=== PATIENT | male | born 1990 | race Caucasian/White ===

== ENCOUNTER 2017-02-17 18:38 | Emergency (ER) | payer OTHER ==
[2017-02-17 18:52] VITALS: O2SAT 95
[2017-02-17] MEDS ORDERED: ASPIRIN 81 MG CHEWABLE TAB PO ONE (19:20)
[2017-02-17 19:44] LABS: % IMMATURE GRANULYOCYTES 0.3 % (0.0-1.1); ABSOLUTE IMMATURE GRANULOCYTES 0.03 10^3/uL (0.00-0.10); ADD DIFF? NO; ADD MORPH? NO; ADD SCAN? NO; ATYPICAL LYMPHOCYTE FLAG 10 (0-99); FRAGMENT RBC FLAG 0 (0-99); HEMATOCRIT 44.1 % (40.0-51.0); HEMOGLOBIN 15.6 g/dL (13.7-17.5); LEFT SHIFT FLG 0 (0-99); LIPEMIA HEMOLYSIS FLAG 90 (0-99); MEAN CELL HEMOGLOBIN 32.9 pg (27.9-34.1); MEAN CELL HEMOGLOBIN CONCENTR. 35.4 g/dL (32.4-36.7); MEAN PLATELET VOLUME 9.7 fL (8.7-11.7); PLATELET CLUMPS FLAG 0 (0-99); PLATELET COUNT 291 10^3/uL (150-400); RED BLOOD CELL COUNT 4.74 10^6/uL (4.40-6.38); RED CELL DISTRIBUTION WIDTH 12.8 % (11.5-15.2)
[2017-02-17 19:57] LABS: ANION GAP 16 mEq/L (8-16); CALCIUM 9.1 mg/dL (8.5-10.4); CARBON DIOXIDE 22 mEq/l (22-31); CHLORIDE 103 mEq/L (97-110); CREATININE 0.7 mg/dL (0.7-1.3); GLOMERULAR FILTRATION RATE > 60; GLUCOSE 118 mg/dL (70-100); POTASSIUM 3.6 mEq/L (3.5-5.2); SODIUM 141 mEq/L (134-144)
[2017-02-17] MEDS ORDERED: IBUPROFEN 600 MG TAB PO ONE (20:06)
[2017-02-17 20:28] LABS: HEMATOCRIT 44.1 % (40.0-51.0)
--- NOTE | 2017-02-17 21:13 | EDPHY ---
H & P Time Seen by Provider: 02/17/17 19:11 HPI/ROS: This patient has right ankle pain for 2 days. He describes this is achy in nature gradually increasing peak intensity 10 now 01/06. He reports associated leg swelling right-sided more than left also for 2 days duration. The patient denies any acute injury. 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 He also has social history notable for significant daily protein intake and alcohol consumption. He wonders if he might have gout. ROS: No fevers or chills. No other constitutional symptoms HEENT: No URI symptoms Pulmonary: No shortness of breath or chest pain. No pleuritic pain. Cardiovascular: No lightheadedness. No chest pain. GI: No complaints Integumentary: No skin rash Musculoskeletal: Again no acute trauma. No other joint pain or swelling. 10 point ROS is otherwise negative. Past Medical/Surgical History: family history is notable for a father with history of gout No family history of DVT or PE No family history of rheumatoid arthritis Social History: Patient admits to drinking 10 shots a night on average and admits to regular alcohol use / abuse since his 1st 7 years ago. Prior to that he only drank socially. He also he uses marijuana on occasion but not daily. Denies any other drug use including no cocaine or IV drug use. His work entails sitting in heavy machinery for 10 hours a day. He is and has a 3 in 5-year-old child Smoking Status: Heavy smoker (he smokes a pack-a-day) Physical Exam: Vital signs are normal with exception of mild hypertension 140/89 General Appearance: Alert, no distress. Eyes: Pupils equal and round no pallor or injection. ENT, Mouth: Mucous membranes moist. no alcohol halitosis is appreciated Respiratory: There are no retractions, lungs are clear to auscultation. Cardiovascular: Regular rate and rhythm. Gastrointestinal: mildly obese. No organomegaly is noted.Abdomen is soft and nontender, no masses, bowel sounds normal. Neurological: GCS 15 with no focal sensory motor deficits. Currently the patient is clinically sober Skin: Warm and dry, no rashes. Musculoskeletal: Neck is supple nontender. Extremities are symmetrical, full range of motion. right lower extremities notable for mild circumferential ankle swelling tenderness with no overlying erythema. He has mild lateral more than medial tenderness. Anterior drawer is negative for laxity. Tilt test is negative. No foot tenderness. He has associated right lower calf swelling with mild tenderness. He also has mild left lower extremity edema that is very mild. No pitting edema the left lower extremity. Knee exam on the right is nontender Psychiatric: Patient is oriented X 3, there is no agitation. DIFFERENTIAL DIAGNOSIS: After history and physical exam differential diagnosis was considered for gout, pseudogout, bony abnormality, ankle sprain associated with potential previous alcohol intoxication, DVT, rheumatoid arthritis, dependent edema Constitutional: Initial Vital Signs Temperature (C) 37 C 02/17/17 18:48 Heart Rate 83 02/17/17 18:48 Respiratory Rate 16 02/17/17 18:48 Blood Pressure 143/89 H 02/17/17 18:48 O2 Sat (%) 95 02/17/17 18:48 O2 Delivery Mode Room Air Allergies/Adverse Reactions: cat dander Allergy (Mild, Verified 02/17/17 18:52) Other-Enter Comments grass pollen Allergy (Mild, Verified 02/17/17 18:52) Home Medications: Medication Instructions Recorded Indomethacin [Indocin 25 mg (RX)] 50 mg PO TID PRN #50 cap 02/17/17 MDM/Departure - MDM Diagnostics: ankle x-ray: Mild soft tissue swelling otherwise normal by my interpretation Imaging Results: Imaging Impressions Ankle X-Ray 02/17/17 20:05 Impression: 1. Mild soft tissue swelling about the right ankle. No underlying osseous abnormality seen. Medications Given: Discontinued Medications Aspirin (Aspirin) 324 mg PO EDNOW ONE Stop: 02/17/17 19:21 Last Admin: 02/17/17 19:28 Dose: 324 mg Ibuprofen (Motrin) 600 mg PO EDNOW ONE Stop: 02/17/17 20:07 Last Admin: 02/17/17 20:19 Dose: 600 mg ED Course/Re-evaluation: aspirin p. o. initially and ibuprofen p.o. with improvement in discomfort. review of labs reveals normal uric acid and electrolytes, normal ESR, minimal elevation of glucose to 118, minimal elevation of total white count. Discussion: Given family history of gout, mono arthropathy in this patient with social history of significant daily protein intake and alcohol consumption , I suspect this patient has acute gouty flare associated with some dependent edema with his job. I counseled regarding this. With negative D-dimer, doubt DVT. I counseled this patient in some detail regarding my concerns about his alcohol abuse and also counseled to quit smoking. Grayson provided a primary care physician for this patient to follow up with. I encouraged him to consider seeing a therapist or going to a to help with his alcohol abuse. The patient understands the plan to return for any significant worsening of symptoms despite the treatment plan - Depart Disposition: Home, Routine, Self-Care Clinical Impression: Leg edema, right Monoarthritis of ankle Qualifiers: Laterality: right Qualified Code(s): M13.171 - Monoarthritis, not elsewhere classified, right ankle and foot Condition: Good Instructions: How to Stop Smoking (ED), Low Purine Diet (ED), Gout (ED), Abuse of Alcohol (ED) Additional Instructions: Diagnosis: 1. acute arthritis to right ankle-likely gout 2. Leg swelling 3. Alcohol abuse Plan: Indocin anti-inflammatory for ankle swelling and discomfort Cut down your protein intake to 1 portion protein today Plenty fluids Cut down or stop your drinking. Quit smoking. Get out of her vehicle and walk around for a few minutes the every few hours at work. Call the primary care physician listed below tomorrow to arrange follow-up appointment for recheck in 3-7 days Prescriptions: Indomethacin [Indocin 25 mg (RX)] 50 mg PO TID PRN #50 cap PRN Reason: pain Referrals: NONE *PRIMARY CARE P,. [Primary Care Provider] - As per Instructions Costa Juarez MD [Medical Doctor] - As per Instructions
[2017-02-17 21:26] VITALS: BP 138/73; PULSE 85; RESP 16; TEMP 98.4
== END 2017-02-17 21:25 | disposition home or self-care (01) ==
LOC: CED 18:38
DX: M13.171 Monoarthritis, not elsewhere classified, right ankle and foot (principal); F17.200 Nicotine dependence, unspecified, uncomplicated
CPT/HCPCS: 73610-PO; 80048-PO; 84550-PO; 85025-PO; 85378-PO; 85652-PO